=== PATIENT | male | born 1985 | race Caucasian/White ===

== ENCOUNTER 2022-09-11 14:21 | Emergency (ER) | payer MEDICAID ==
[2022-09-11 15:04] LABS: BASOPHILS ABSOLUTE AUTO 0.03 K/mm3 (0.01-0.08); BASOPHILS PERCENT AUTO 0.5 % (0.1-1.2); EOSINOPHILS PERCENT AUTO 1.7 (0.8-7.0); HEMATOCRIT 45.6 % (40.1-51.0); HEMOGLOBIN 15.2 gm/dl (13.7-17.5); IMMATURE GRAN ABSOLUTE AUTO 0.01 K/mm3 (0.00-0.10); IMMATURE GRAN PERCENT AUTO 0.2 % (<=1.0); LYMPHOCYTES ABSOLUTE AUTO 1.81 K/mm3 (1.32-3.57); LYMPHOCYTES PERCENT AUTO 30.7 % (21.8-53.1); MEAN CORPUSCULAR HEMOGLOBIN 30.5 pg (25.7-32.2); MEAN CORPUSCULAR HGB CONC 33.3 g/dl (32.2-35.5); MEAN CORPUSCULAR VOLUME 91.4 fl (79.0-92.2); MEAN PLATELET VOLUME 9.9 fl (9.4-12.3); MONOCYTES ABSOLUTE AUTO 0.36 K/mm3 (0.30-0.82); MONOCYTES PERCENT AUTO 6.1 % (5.3-12.2); NEUTROPHILS ABSOLUTE AUTO 3.58 K/mm3 (1.78-5.38); NEUTROPHILS PERCENT AUTO 60.8 % (34.0-67.9); PLATELET COUNT,PLT 330 K/mm3 (163-337); RED BLOOD CELL COUNT 4.99 M/mm3 (4.63-6.08); WHITE BLOOD CELL COUNT,WBC 5.89 K/mm3 (4.23-9.07)
[2022-09-11 15:26] LABS: ALBUMIN 3.4 g/dl (3.4-5.0); ANION GAP 14.6 (5-15); BILIRUBIN TOTAL 0.1 mg/dL (0.2-1.0); BUN/CREATININE RATIO 13.8 (14-18); CALCIUM 8.9 mg/dL (8.5-10.1); CREATININE 0.8 mg/dL (0.7-1.3); EST CRCL DRUG DOSING (CG) 124.69 mL/min; ETHANOL BLOOD MEDICAL 0.23 gm% (0.00); POTASSIUM,K 3.6 mEq/L (3.5-5.1); PROTEIN TOTAL,TP 6.9 g/dl (6.4-8.2)
[2022-09-11 15:45] LABS: BARBITURATE SCREEN,URINE NEGATIVE (CUTOFF=200); BENZODIAZEPINES SCREEN,URINE NEGATIVE (CUTOFF=150); BUPRENORPHINE SCREEN,URINE NEGATIVE (CUTOFF=10); METHADONE SCREEN, URINE NEGATIVE (CUT0FF=200); METHAMPHETAMINES SCREEN, URINE NEGATIVE (CUTOFF=500); OXYCODONE SCREEN,URINE NEGATIVE (CUT0FF=100); PROPOXYPHENE SCREEN,URINE NEGATIVE (CUTOFF=300); THC SCREEN,URINE 20 NG/ML NEGATIVE (CUTOFF=50)
[2022-09-11 15:55] LABS: AMPHETAMINES SCREEN, URINE NEGATIVE (CUTOFF=500)
== END 2022-09-11 17:04 ==
LOC: JD.ED 14:21
DX: F10.10 Alcohol abuse, uncomplicated (principal)
CPT/HCPCS: 36415; 80053; 80143; 80179; 80306; 80307; 85025; 99283; 99284